=== PATIENT | male | born 1990 | race Two or more races ===

== ENCOUNTER 2021-05-15 17:23 | Emergency (ER) | payer BC ==
[~2021-05-15] VITALS: Ht 152.4 cm; Wt 104.3 kg
[2021-05-15] MEDS ORDERED: ZESTRIL10 M1 (17:27)
[2021-05-15] MEDS ORDERED: KETO10TA2 PO (20:42)
== END 2021-05-15 22:16 | disposition home or self-care (01) ==
LOC: ER 17:23
DX: S89.91XA Unspecified injury of right lower leg, initial encounter (principal); W05.1XXA Fall from non-moving nonmotorized scooter, initial encounter; Y93.9 Activity, unspecified; Y92.9 Unspecified place or not applicable; Y99.9 Unspecified external cause status